=== PATIENT | female | born 1990 | race African-American/Black ===

== ENCOUNTER 2016-11-26 16:37 | Emergency (ER) | payer MEDICAID ==
[~2016-11-26 16:37] MED LIST: ALBU2.5I INH; CLON.1 PO; MACR100C PO
[2016-11-26] MEDS ORDERED: PREN29TA PO (17:29)
--- NOTE | 2016-11-26 18:04 | PD ---
HPI Chief Complaint Lower abdominal pain Date Seen: Nov 26, 2016 Travel History International Travel<30 Days: No Contact w/Intl Traveler<30Days: No Known Affected Area: No History of Present Illness HPI This patient is 26-year-old black female at 31-1/[address] Lynch presents planning of lower abdominal pain, no leakage or bleeding. Heart rate tracing is reactive, no contractions Para: 2 : 3 Last Menstrual Period: Nov 26, 2016 History Obstetric History Obstetric History 1 delivery at term and another at 35 weeks Social History Alcohol Use: No Tobacco Use: No Substance Abuse: No Allergies-Medications (Allergen,Severity, Reaction): Coded Allergies: No Known Allergies (Verified , 05/15/16) Home Meds Active Scripts Albuterol Sulfate (Resp: Albuterol 2.5 Mg/3 Ml Neb)2.5 Mg/3 Ml Nebu2.5 Mg INH Q4H PRN (SOB/WHEEZING) #1 BOX Ref 0 Prov:Fernando Foster MD 06/25/15 Reported Medications Vit-Iron Carbonyl ( Plus Iron 29-1 mg)1 Tab Tab1 Tab PO DAILY #30 TAB Ref 0 11/26/16 Discontinued Reported Medications Clonidine 0.1 mg (Catapres 0.1 mg)0.1 Mg Tab1 Tab PO DAILY 10/14/15 Discontinued Scripts Nitrofurantoin Monohyd Macro (Macrobid)100 Mg Cap1 Tab PO BID #14 CAP Prov:Aroldo Black MD 05/15/16 Review of Systems General / Constitutional: No: Fever, Weight Gain, Chills, Other Eyes: No: Diploplia, Blurred Vision, Visual changes, Pain, Photophobia HENT: No: Headaches, Vertigo, Lightheadedness Cardiovascular: No: Irregular Rhythm, Chest Pain or Discomfort, Palpitations, Tachycardia, Syncope, Varicosities, Edema, Cyanosis Respiratory: No: Cough, Short of Breath, Other Gastrointestinal: Nausea, Vomiting, Abdominal Pain, No: Diarrhea Genitourinary: No: Decreased Urinary Output, Oliguria Musculoskeletal: No: Limited ROM, Weakness, Cramping, Edema, Pain Skin: No Rash, No Itching, No Dryness, No Lumps, No Change in Pigmentation, No Change in Nails, No Alopecia, No Lesions Neurologic: No: Weakness, Dizziness, Syncope, Focal Abnormalities, Coordination Problem, Headache, Slurred Speech, Seizures Psychiatric: No: Depression, Suicidal Ideations, Homicidal Ideation Endocrine: No: Heat Intolerance, Cold Intolerance, Polydipsia, Polyuria, Other Physical Exam Narrative GENERAL: Well-nourished, well-developed patient. SKIN: Warm and dry. HEAD: Normocephalic and atraumatic. EYES: No scleral icterus. No injection or drainage. ENT: No nasal drainage noted. Mucous membranes pink. Airway patent. NECK: Supple, trachea midline. No JVD. CARDIOVASCULAR: Regular rate and rhythm without murmurs, gallops, or rubs. RESPIRATORY: Breath sounds equal bilaterally. No accessory muscle use. BREASTS: Bilateral exam showed no masses , no retractions, no nipple discharge. ABDOMEN/GI: Abdomen soft, non-tender, bowel sounds present, no rebound, no guarding Gravid to [31-] weeks size Fundal Height: [-31] GENITOURINARY: External Genitalia: intact and normal in appearance BUS glands: [-] Cervix: [-] Dilatation: [Closed-] Effacement: [-] Thick Station: [-3] Membranes: [intact ] Uterine Contractions: [-none] FHT's: Category: [1-] Baseline: [-144] Reactive: [-yes] Variability: [-mod] Decels: [none-] EXTREMITIES: No cyanosis or edema. BACK: Nontender without obvious deformity. No CVA tenderness. NEUROLOGICAL: Awake and alert. Motor and sensory grossly within normal limits. Five out of 5 muscle strength in all muscle groups. Normal speech. Data Data Orders Fentanyl Inj (Fentanyl Inj) (11/26/16 17:45) MDM Interpretation(s) The patient 26-year-old black female 31-1/2 weeks presents combining lower abdominal pain pressure some nausea and vomiting main complaint was 1 of lower abdominal pain, there was no bleeding or ruptured membranes. No contractions noted cervix is closed and thick she says she's recently treated for UTI so no urine repeated tonight Plan Plan the patient 50 micgm of fentanyl IM for pain, she is use Tylenol at home. Plenty of fluids to stay hydrated stay in bed and days heating pad on lower abdomen as needed. A work note given for 48 hours bedrest. She is to follow- up with her OB provider for increased symptoms or as scheduled Diagnosis Diagnosis: Primary Impression: related bilateral lower abdominal pain, antepartum Disposition: 01 DISCHARGE HOME Condition: Stable Patient Instructions: General Instructions, Early Labor Signs (ED), Movement (ED) Departure Forms: Tests/Procedures Kwadwo Winchester II, MD Nov 26, 2016 18:04
[2017-01-18] MEDS ORDERED: ALBU2TAB4 PO (13:25)
== END 2016-11-26 18:12 | disposition home or self-care (01) ==
LOC: HOBED 16:37
DX: O26.893 Other specified pregnancy related conditions, third trimester (principal); R10.30 Lower abdominal pain, unspecified; O21.9 Vomiting of pregnancy, unspecified; Z3A.31 31 weeks gestation of pregnancy
CPT/HCPCS: 96372; 99284; J3010

== ENCOUNTER 2016-12-28 18:32 | Emergency (ER) | payer MEDICAID ==
[~2016-12-28 18:32] MED LIST changes: -CLON.1 PO; -MACR100C PO; +PREN29TA PO
--- NOTE | 2016-12-28 20:01 | PD ---
HPI Chief Complaint Contractions Date Seen: December 28, 2016 Time Seen: 19:57 Travel History International Travel<30 Days: No Contact w/Intl Traveler<30Days: No Known Affected Area: No History of Present Illness HPI 26-year-old female at 37 weeks and 4 days comes in today complaining of 2 days contractions associated with back pain. She states that she is call her OB office several times but has not been able to get a hold of anybody. She's had good movement no vaginal discharge and denies vaginal bleeding. Last visit to the office was 2 weeks ago patient does not presently have an OB appointment set up Para: 2 : 3 History Past Medical History Narrative Medical Chronic hypertension on no medications during this Obstetric History Obstetric History Spontaneous vaginal delivery 2 Past Surgical History Surgical History: No Previous Surgery Family History Family History: Negative Social History Alcohol Use: No Tobacco Use: No Substance Abuse: No Allergies-Medications (Allergen,Severity, Reaction): Coded Allergies: No Known Allergies (Verified , 05/15/16) Home Meds Active Scripts Albuterol Sulfate (Resp: Albuterol 2.5 Mg/3 Ml Neb)2.5 Mg/3 Ml Nebu2.5 Mg INH Q4H PRN (SOB/WHEEZING) #1 BOX Ref 0 Prov:Fernando Foster MD 06/25/15 Reported Medications Vit-Iron Carbonyl ( Plus Iron 29-1 mg)1 Tab Tab1 Tab PO DAILY #30 TAB Ref 0 11/26/16 Review of Systems Except as stated in HPI: all other systems reviewed are Neg Physical Exam Narrative GENERAL: Well-nourished, well-developed patient. SKIN: Warm and dry. HEAD: Normocephalic and atraumatic. EYES: No scleral icterus. No injection or drainage. ENT: No nasal drainage noted. Mucous membranes pink. Airway patent. NECK: Supple, trachea midline. No JVD. CARDIOVASCULAR: Regular rate and rhythm without murmurs, gallops, or rubs. RESPIRATORY: Breath sounds equal bilaterally. No accessory muscle use. BREASTS: Bilateral exam showed no masses , no retractions, no nipple discharge. ABDOMEN/GI: Abdomen soft, non-tender, bowel sounds present, no rebound, no guarding Gravid to [-37] weeks size Fundal Height: [-] GENITOURINARY: External Genitalia: intact and normal in appearance BUS glands: [Normal-] Cervix: [] Dilatation: [Fingertip] Effacement: [-50] Station: [--3] Presentation: [Vertex-] Membranes: [intact or ruptured] intact Uterine Contractions: [-] Absent FHT's: Category: [1-] Baseline: [140-] Reactive: [Moderate-] Variability: [-Moderate] Decels: [Absent-] EXTREMITIES: No cyanosis or edema. BACK: Nontender without obvious deformity. No CVA tenderness. NEUROLOGICAL: Awake and alert. Motor and sensory grossly within normal limits. Five out of 5 muscle strength in all muscle groups. Normal speech. Data Data Vital Signs Reviewed: Yes MDM Plan 20 suture female who is at 37-38 weeks gestation Discomforts of is noted no signs of labor at this time Strong recommendations for an OB visit at this time as she has not yet had a group B strep test Diagnosis Diagnosis: Primary Impression: 37 weeks gestation of Additional Impressions: False labor False labor after 37 completed weeks of gestation Disposition: 01 DISCHARGE HOME Yola Sánchez MD December 28, 2016 20:00
[2017-01-18] MEDS ORDERED: ALBU2TAB4 PO (13:25)
== END 2016-12-28 20:09 | disposition home or self-care (01) ==
LOC: HOBED 18:32
DX: O47.1 False labor at or after 37 completed weeks of gestation (principal); Z3A.37 37 weeks gestation of pregnancy
CPT/HCPCS: 99283

== ENCOUNTER 2017-01-20 01:05 | Emergency (ER) | payer MEDICAID ==
[~2017-01-20 01:05] MED LIST changes: -ALBU2.5I INH; +ALBU2TAB4 PO
[2017-01-20] MEDS ORDERED: LACTATED RINGER'S 1000 ML INJ 1,000 ML IV SCH (01:39)
[2017-01-20] MEDS ORDERED: METOCLOPRAMIDE HCL 10 MG/2 ML VIAL IV PUSH ONE (01:45)
[2017-01-20] MEDS ORDERED: ONDANSETRON HCL 4 MG/2 ML VIAL IV PUSH ONE (01:45)
[2017-01-20] MEDS ORDERED: PROM25TA10 PO (01:46)
--- NOTE | 2017-01-20 01:47 | PD ---
HPI Chief Complaint Nausea and vomiting, rectal pressure Date Seen: January 20, 2017 Travel History International Travel<30 Days: No Contact w/Intl Traveler<30Days: No Known Affected Area: No History of Present Illness HPI Patient is 26-year-old black female at 39 weeks who presents complaining of nausea and vomiting all day resistant to diclegis , she's had no other medication. She complains of rectal pressure is throwing up so much. Denies contractions rupture the membranes or leakage of amniotic fluid. heart rate tracing is reactive and there are no regular contractions Para: 2 : 3 History Obstetric History Obstetric History 2 vaginal deliveries Social History Alcohol Use: No Tobacco Use: No Substance Abuse: No Allergies-Medications (Allergen,Severity, Reaction): Coded Allergies: No Known Allergies (Verified , 01/18/17) Home Meds Reported Medications Albuterol 2 Mg Tab2 Mg PO TID #90 TAB Ref 0 01/18/17 Vit-Iron Carbonyl ( Plus Iron 29-1 mg)1 Tab Tab1 Tab PO DAILY #30 TAB Ref 0 11/26/16 Review of Systems General / Constitutional: No: Fever, Weight Gain, Chills, Other Eyes: No: Diploplia, Blurred Vision, Visual changes, Pain, Photophobia HENT: No: Headaches, Vertigo, Lightheadedness Cardiovascular: No: Irregular Rhythm, Chest Pain or Discomfort, Palpitations, Tachycardia, Syncope, Varicosities, Edema, Cyanosis Respiratory: No: Cough, Short of Breath, Other Gastrointestinal: Nausea, Vomiting, No: Diarrhea Genitourinary: No: Decreased Urinary Output, Oliguria Musculoskeletal: No: Limited ROM, Weakness, Cramping, Edema, Pain Skin: No Rash, No Itching, No Dryness, No Lumps, No Change in Pigmentation, No Change in Nails, No Alopecia, No Lesions Neurologic: No: Weakness, Dizziness, Syncope, Focal Abnormalities, Coordination Problem, Headache, Slurred Speech, Seizures Psychiatric: No: Depression, Suicidal Ideations, Homicidal Ideation Endocrine: No: Heat Intolerance, Cold Intolerance, Polydipsia, Polyuria, Other Physical Exam Narrative GENERAL: Well-nourished, well-developed patient. SKIN: Warm and dry. HEAD: Normocephalic and atraumatic. EYES: No scleral icterus. No injection or drainage. ENT: No nasal drainage noted. Mucous membranes pink. Airway patent. NECK: Supple, trachea midline. No JVD. CARDIOVASCULAR: Regular rate and rhythm without murmurs, gallops, or rubs. RESPIRATORY: Breath sounds equal bilaterally. No accessory muscle use. BREASTS: Bilateral exam showed no masses , no retractions, no nipple discharge. ABDOMEN/GI: Abdomen soft, non-tender, bowel sounds present, no rebound, no guarding Gravid to [39-] weeks size Fundal Height: [39-] GENITOURINARY: External Genitalia: intact and normal in appearance BUS glands: [-] Cervix: [Closed-] Dilatation: [0-] Effacement: [Thick-] Station: [-3] Presentation: [vtx-] Membranes: [intact ] Uterine Contractions: [Occasional-] FHT's: Category: [1-] Baseline: [-133] Reactive: [-yes] Variability: [mod-] Decels: [0-] EXTREMITIES: No cyanosis or edema. BACK: Nontender without obvious deformity. No CVA tenderness. NEUROLOGICAL: Awake and alert. Motor and sensory grossly within normal limits. Five out of 5 muscle strength in all muscle groups. Normal speech. Data Data Orders Vital Signs (Adult) .ON ADMISSION (01/20/17 01:39) ^ Labor Status (01/20/17 01:39) Lactated Ringer's 1000 Ml Inj (Lr 1000 M (01/20/17 01:39) Ondansetron Inj (Zofran Inj) (01/20/17 01:45) MDM Interpretation(s) 26-year-old black female 39 weeks for nausea and vomiting throughout the day. Also now experiencing some rectal pressure. heart rate tracing is reactive and no regular contractions. No leakage of fluid no bleeding, cervix is closed very posterior thick patient here in OB ED received a liter of IV fluid IV Zofran and Reglan, and she'll have a prescription for Phenergan to take at home Plan Plan to discharge the patient with a Phenergan prescription for a 25 mg tablets orally take every 6 when necessary, she should use a bland diet increase her oral fluids for hydration purposes, and follow-up with [facility] provider [facility] Diagnosis Diagnosis: Primary Impression: Nausea and vomiting of , antepartum Disposition: 01 DISCHARGE HOME Condition: Stable Scripts Promethazine (Phenergan)25 Mg [id number] Mg PO Q6H PRN (NAUSEA OR VOMITING) #30 TAB Ref 0 Prov:Kwadwo Winchester II, MD 01/20/17 Kwadwo Winchester II, MD January 20, 2017 01:46
[2017-01-20] MEDS ORDERED: AZIT250T3 PO (11:37)
== END 2017-01-20 03:19 | disposition home or self-care (01) ==
LOC: HOBED 01:05
DX: O21.0 Mild hyperemesis gravidarum (principal)
CPT/HCPCS: 96374; 96375; J2405; J2765; J7120

== ENCOUNTER 2017-01-21 11:53 | Inpatient (IN) | payer MEDICAID ==
[2017-01-21] VITALS (36 sets, daily range): BP systolic 108–139; BP diastolic 59–92; PULSE 69–159; RESP 18; TEMP 97.6–98.6; O2SAT 100
[~2017-01-21] VITALS: Ht 170.2 cm; Wt 94.3 kg
[~2017-01-21 11:53] MED LIST changes: +AZIT250T3 PO; +PROM25TA10 PO
[2017-01-21] MEDS ORDERED: LACTATED RINGER'S 1000 ML INJ 1,000 ML IV PRN (12:14)
[2017-01-21] MEDS ORDERED: LACTATED RINGER'S 1000 ML INJ 1,000 ML IV SCH (12:14)
[2017-01-21] MEDS ORDERED: SODIUM CHLORID 0.9% 500 ML INJ 500 ML IV PRN (12:15)
[2017-01-21] MEDS ORDERED: LIDOCAINE HCL 1% 50 ML VIAL I-DERMAL PRN (12:15)
[2017-01-21] MEDS ORDERED: OXYTOCIN 30 UNITS-500ML PREMIX 500 ML IV ONE (12:15)
[2017-01-21] MEDS ORDERED: MINERAL OIL 10 ML VIAL TOPICAL PRN (12:15)
[2017-01-21] MEDS ORDERED: CITRIC ACID-SODIUM CITRATE LIQ 30 ML UDC PO SCH (12:15)
[2017-01-21] MEDS ORDERED: LIDOCAINE HCL 1% 50 ML VIAL INFIL PRN (12:15)
[2017-01-21] MEDS ORDERED: PENICILLIN G POTASSIUM INJ 5,000,000 UNITS in SODIUM CHLORIDE 0.9% INJ 100 ML IV ONE (12:30)
[2017-01-21] MEDS ORDERED: AZITHROMYCIN 600 MG TAB PO ONE (12:30)
[2017-01-21] MEDS ORDERED: SODIUM CHLOR 0.9% 1000 ML INJ 1,000 ML IV PRN (12:34)
--- NOTE | 2017-01-21 12:49 | PD ---
HPI Chief Complaint Contractions, leaking fluid Date Seen: January 21, 2017 (Steven Vega MD R2) Travel History International Travel<30 Days: No Contact w/Intl Traveler<30Days: No (Steven Vega MD) History of Present Illness HPI 26 year old at 39/4 weeks gestation presents to the OB ED with leaking fluid this morning and with contractions that are 25 minutes apart. She has good movements, no vaginal bleeding. No headache, blurry vision, epigastric pain, or new onset of edema. No nausea, vomiting. Reports no complications in this . She is GBS positive. She has asthma and uses Albuterol once or twice a day. (Steven Vega MD) History Past Medical History Narrative Medical Asthma: uses albuterol once or twice daily (Steven Vega MD R2) Obstetric History Obstetric History Vaginal deliveries 1st: delivered at 35 weeks 2nd delivered 38 weeks GBS positive Chlamydia positive No reported complications in Was patient of Dr. Barraza, switched to Dr. Jordan recently BMI >32.6 labs: Blood type: A Rh: positive Antibody screen: negative Rubella: immune VDRL negative HBsAG negative HIV negative Chlamydia negative Gonorrhea positive with negative KINJAL 07/18/16 TSH normal Chlamydia test 3rd trimester positive Gonorrhea third trimester negative (Steven Vega MD R2) Past Surgical History Narrative Surgical None (Steven Vega MD) Family History Narrative Family History None (Steven Vega MD) Social History Narrative Social History No smoking, drinking, or drug use reported (Steven Vega MD R2) Allergies-Medications (Allergen,Severity, Reaction): Coded Allergies: No Known Allergies (Verified , 01/18/17) Home Meds Active Scripts Azithromycin 250 Mg Tab1,000 Mg PO DAILY #4 TAB Ref 1 Prov:Henrietta Bautista CNM 01/20/17 Promethazine (Phenergan)25 Mg [id number] Mg PO Q6H PRN (NAUSEA OR VOMITING) #30 TAB Ref 0 Prov:Kwadwo Winchester II, MD 01/20/17 Reported Medications Albuterol 2 Mg Tab2 Mg PO TID #90 TAB Ref 0 01/18/17 Vit-Iron Carbonyl ( Plus Iron 29-1 mg)1 Tab Tab1 Tab PO DAILY #30 TAB Ref 0 11/26/16 Review of Systems Except as stated in HPI: all other systems reviewed are Neg (Steven Vega MD R2) Physical Exam Narrative GENERAL: Well-nourished, well-developed patient. SKIN: Warm and dry. HEAD: Normocephalic and atraumatic. EYES: No scleral icterus. No injection or drainage. ENT: No nasal drainage noted. Mucous membranes pink. Airway patent. NECK: Supple, trachea midline. No JVD. CARDIOVASCULAR: Regular rate and rhythm without murmurs, gallops, or rubs. RESPIRATORY: Breath sounds equal bilaterally. No accessory muscle use. ABDOMEN/GI: Abdomen soft, non-tender, bowel sounds present, no rebound, no guarding Gravid to 39 weeks size GENITOURINARY: External Genitalia: intact and normal in appearance Dilatation: 4 cm Effacement: 80% Station: -1 Presentation: vertex Membranes: intact Uterine Contractions: irritable uterus FHT's: Category: 1 Baseline: 130's Reactive: yes Variability: moderate Decels: none EXTREMITIES: No cyanosis or edema. BACK: Nontender without obvious deformity. No CVA tenderness. NEUROLOGICAL: Awake and alert. Motor and sensory grossly within normal limits. Five out of 5 muscle strength in all muscle groups. Normal speech. (Steven Vega MD R2) Data Data Vital Signs Reviewed: Yes Orders Admit To Inpatient (01/21/17 ) Code Status (01/21/17 12:14) Vital Signs (Adult) .Per protocol (01/21/17 12:14) Heart (01/21/17 12:14) Amnioinfusion (01/21/17 12:14) Urinary Catheter Management .ONCE (01/21/17 12:14) Lactated Ringer's 1000 Ml Inj (Lr 1000 M (01/21/17 12:14) Lactated Ringer's 1000 Ml Inj (Lr 1000 M (01/21/17 12:14) Sodium Chlorid 0.9% 500 Ml Inj (Ns 500 M (01/21/17 12:15) Sodium Chlor 0.9% 1000 Ml Inj (Ns 1000 M (01/21/17 12:34) Lidocaine 1% Inj (50 Ml) (Xylocaine 1% I (01/21/17 12:15) Citric Acid-Sodium Citrate Liq (Bicitra (01/21/17 12:15) Fentanyl Inj (Fentanyl Inj) (01/21/17 12:15) Fentanyl Inj (Fentanyl Inj) (01/21/17 12:15) Complete Blood Count With Diff (01/21/17 12:14) Hold Clot (01/21/17 12:14) Abo/Rh Blood Type (01/21/17 12:14) Resp Oxygen Non Rebreathe Mask (01/21/17 ) ^ Epidural / Intrathecal Infus (01/21/17 12:14) Oxytocin 30 Units-500ml Premix (Pitocin (01/21/17 12:15) Lidocaine 1% Inj (50 Ml) (Xylocaine 1% I (01/21/17 12:15) Light Mineral Oil (Muri-Lube Oil) (01/21/17 12:15) Inpatient Certification (01/21/17 ) Ob (2e) Additional Admit Info (01/21/17 12:16) Penicillin G Potassium Inj (Pfizerpen-G (01/21/17 12:30) Penicillin G Potassium Inj (Pfizerpen-G (01/21/17 16:30) Azithromycin (Zithromax) (01/21/17 12:30) (Steven Vega MD R2) MDM Medical Record Reviewed: Yes Interpretation(s) 26 year old at 39/4 weeks gestation, cervical exam 4/80/-1, category 1 strip. Amnisure negative. - Admit to labor and delivery, anticipate vaginal delivery - Epidural for pain control when needed - GBS positive, penicillin G started - Chlamydia: Azithromycin given - heart monitoring Discussed with Dr. El (Steven Vega MD R2) Attending Attestation Patient seen and evaluated with resident under direct supervision, agree with assessment and plan. (Shadi El MD) Steven Vega MD R2 January 21, 2017 12:48 Shadi El MD January 21, 2017 16:17
--- NOTE | 2017-01-21 13:00 | HHI.HP ---
History & Physical H&P Patient Name: Caio Mayer Unit Number: [id number] Date of : 1990 Patient Status: Admitted Inpatient Attending Doctor: Shadi El MD HPI HPI Chief Complaint Contractions, leaking fluid Date Seen: January 21, 2017 Travel History International Travel<30 Days: No Contact w/Intl Traveler<30Days: No History of Present Illness HPI 26 year old at 39/4 weeks gestation presents to the OB ED with leaking fluid this morning and with contractions that are 25 minutes apart. She has good movements, no vaginal bleeding. No headache, blurry vision, epigastric pain, or new onset of edema. No nausea, vomiting. Reports no complications in this . She is GBS positive. She has asthma and uses Albuterol once or twice a day. History (Limited) History Past Medical History Narrative Medical Asthma: uses albuterol once or twice daily Obstetric History Obstetric History Vaginal deliveries 1st: delivered at 35 weeks 2nd delivered 38 weeks GBS positive Chlamydia positive No reported complications in Was patient of Dr. Barraza, switched to Dr. Jordan recently BMI >32.6 labs: Blood type: A Rh: positive Antibody screen: negative Rubella: immune VDRL negative HBsAG negative HIV negative Chlamydia negative Gonorrhea positive with negative KINJAL 07/18/16 TSH normal Chlamydia test 3rd trimester positive Gonorrhea third trimester negative Past Surgical History Narrative Surgical None Family History Narrative Family History None Social History Narrative Social History No smoking, drinking, or drug use reported Allergies-Medications Allergies-Medications (Allergen,Severity, Reaction): Coded Allergies: No Known Allergies (Verified , 01/18/17) Home Meds Active Scripts Azithromycin 250 Mg Tab1,000 Mg PO DAILY #4 TAB Ref 1 Prov:Henrietta Bautista CNM [employer] 01/20/17 Promethazine (Phenergan)25 Mg [id number] Mg PO Q6H PRN (NAUSEA OR VOMITING) #30 TAB Ref 0 Prov:Kwadwo Winchester II, MD 01/20/17 Reported Medications Albuterol 2 Mg Tab2 Mg PO TID #90 TAB Ref 0 01/18/17 Vit-Iron Carbonyl ( Plus Iron 29-1 mg)1 Tab Tab1 Tab PO DAILY #30 TAB Ref 0 11/26/16 ROS Review of Systems Except as stated in HPI: all other systems reviewed are Neg Physical Exam Physical Exam Narrative GENERAL: Well-nourished, well-developed patient. SKIN: Warm and dry. HEAD: Normocephalic and atraumatic. EYES: No scleral icterus. No injection or drainage. ENT: No nasal drainage noted. Mucous membranes pink. Airway patent. NECK: Supple, trachea midline. No JVD. CARDIOVASCULAR: Regular rate and rhythm without murmurs, gallops, or rubs. RESPIRATORY: Breath sounds equal bilaterally. No accessory muscle use. ABDOMEN/GI: Abdomen soft, non-tender, bowel sounds present, no rebound, no guarding Gravid to 39 weeks size GENITOURINARY: External Genitalia: intact and normal in appearance Dilatation: 4 cm Effacement: 80% Station: -1 Presentation: vertex Membranes: intact Uterine Contractions: irritable uterus FHT's: Category: 1 Baseline: 130's Reactive: yes Variability: moderate Decels: none EXTREMITIES: No cyanosis or edema. BACK: Nontender without obvious deformity. No CVA tenderness. NEUROLOGICAL: Awake and alert. Motor and sensory grossly within normal limits. Five out of 5 muscle strength in all muscle groups. Normal speech. Data Data Data Vital Signs Reviewed: Yes Orders Admit To Inpatient (01/21/17 ) Code Status (01/21/17 12:14) Vital Signs (Adult) .Per protocol (01/21/17 12:14) Heart (01/21/17 12:14) Amnioinfusion (01/21/17 12:14) Urinary Catheter Management .ONCE (01/21/17 12:14) Lactated Ringer's 1000 Ml Inj (Lr 1000 M (01/21/17 12:14) Lactated Ringer's 1000 Ml Inj (Lr 1000 M (01/21/17 12:14) Sodium Chlorid 0.9% 500 Ml Inj (Ns 500 M (01/21/17 12:15) Sodium Chlor 0.9% 1000 Ml Inj (Ns 1000 M (01/21/17 12:34) Lidocaine 1% Inj (50 Ml) (Xylocaine 1% I (01/21/17 12:15) Citric Acid-Sodium Citrate Liq (Bicitra (01/21/17 12:15) Fentanyl Inj (Fentanyl Inj) (01/21/17 12:15) Fentanyl Inj (Fentanyl Inj) (01/21/17 12:15) Complete Blood Count With Diff (01/21/17 12:14) Hold Clot (01/21/17 12:14) Abo/Rh Blood Type (01/21/17 12:14) Resp Oxygen Non Rebreathe Mask (01/21/17 ) ^ Epidural / Intrathecal Infus (01/21/17 12:14) Oxytocin 30 Units-500ml Premix (Pitocin (01/21/17 12:15) Lidocaine 1% Inj (50 Ml) (Xylocaine 1% I (01/21/17 12:15) Light Mineral Oil (Muri-Lube Oil) (01/21/17 12:15) Inpatient Certification (01/21/17 ) Ob (2e) Additional Admit Info (01/21/17 12:16) Penicillin G Potassium Inj (Pfizerpen-G (01/21/17 12:30) Penicillin G Potassium Inj (Pfizerpen-G (01/21/17 16:30) Azithromycin (Zithromax) (01/21/17 12:30) MDM MDM Medical Record Reviewed: Yes Interpretation(s) 26 year old at 39/4 weeks gestation, cervical exam 4/80/-1, category 1 strip. Amnisure negative. - Admit to labor and delivery, anticipate vaginal delivery - Epidural for pain control when needed - GBS positive, penicillin G started - Chlamydia: Azithromycin given - heart monitoring Discussed with Dr. El (Steven Vega MD R2) H&P Patient seen and evaluated with resident under direct supervision, agree with assessment and plan. (Shadi El MD) Steven Vega MD R2 January 21, 2017 13:00 Shadi El MD January 21, 2017 16:17
[2017-01-21 13:18] LABS: AUTOMATED NEUTROPHIL # 5.9 TH/MM3 (1.8-7.7); BASOPHIL % 0.4 % (0.0-2.0); EOSINOPHIL # 0.1 TH/MM3 (0-0.4); EOSINOPHIL % 1.3 % (0.0-4.0); HEMATOCRIT 37.9 % (35.0-46.0); HEMO FLAGS DIFF FINAL; LYMPH % 20.7 % (9.0-44.0); LYMPHOCYTE # 1.7 TH/MM3 (1.0-4.8); MEAN CELL VOLUME 81.8 FL (80.0-100.0); MEAN CORPUSCULAR HEMOGLOBIN 27.5 PG (27.0-34.0); MEAN CORPUSCULAR HGB CONC 33.7 % (32.0-36.0); MONO % 5.2 % (0.0-8.0); NEUT % 72.4 % (16.0-70.0); PLATELET COUNT 224 TH/MM3 (150-450); RED BLOOD COUNT 4.64 MIL/MM3 (4.00-5.30); RED CELL DISTRIBUTION WIDTH 14.3 % (11.6-17.2); WHITE BLOOD COUNT 8.1 TH/MM3 (4.0-11.0)
[2017-01-21] MEDS ORDERED: MEASLES, MUMPS, RUBELLA VACCINE 0.5 ML VIAL SQ ONE (16:00)
[2017-01-21] MEDS ORDERED: DIPHTH/TETANUS/ACEL PERTUSSIS (BOOSTER) 0.5 ML VIAL/PFS IM ONE (16:00)
[2017-01-21] MEDS ORDERED: ALBUTEROL SULFATE 90 MCG/ACT HFA 18 GM INHALER INH PRN (16:15)
--- NOTE | 2017-01-21 16:27 | PD.LABORPN ---
Subjective Subjective The patient notes increased contraction intensity. Objective Vital Signs Vital Signs Date Time Temp Pulse Resp B/P Pulse Ox O2 Delivery O2 Flow Rate FiO2 01/21/17 16:05 18 01/21/17 16:03 70 126/82 01/21/17 15:26 84 117/71 01/21/17 15:25 83 01/21/17 15:25 18 01/21/17 15:20 78 01/21/17 15:15 90 01/21/17 15:10 82 01/21/17 15:05 84 01/21/17 15:00 83 01/21/17 14:55 75 01/21/17 14:50 76 01/21/17 14:25 98.6 18 01/21/17 14:24 69 124/69 01/21/17 13:25 80 01/21/17 13:20 90 01/21/17 13:15 84 01/21/17 12:10 88 01/21/17 12:07 96 120/59 01/21/17 12:05 97 Objective Pelvic Exam: Cervix: [-] Dilatation: [6-] Effacement: [100-] Station: [--1] Presentation: [-] Membranes: [intact] Uterine Contractions: [3-] FHT's: Category: [-1] Baseline: [-] Reactive: [-] Variability: [-] Decels: [-] Assessment/Plan Assessment and Plan Assessment: Progressing in active labor Plan: Continue GBS prophylaxis Expect vaginal delivery Shadi El MD January 21, 2017 16:26
[2017-01-21] MEDS ORDERED: PENICILLIN G POTASSIUM INJ 2,500,000 UNITS in SODIUM CHLORIDE 0.9% INJ 100 ML IV SCH (16:30)
--- NOTE | 2017-01-21 18:12 | PD.OB.DELI ---
Delivery Date: January 21, 2017 Anesthesia: None Episiotomy: None Vaginal Delivery: Normal Presentation: Occiput anterior Nuchal Cord: None Delayed cord clamping (45 sec): Yes Infant: Female One Minute : 8 Five Minute : 9 Weight: 2740 g Placenta: Spontaneous delivery Laceration: No lacerations Additional Information Delivered by Dr. Pop Supervised by Dr. El Notes: Quick expulsion of head, no dystocia, no lacerations (lEiseo Pop MD R1) Attestation I attended this delivery. The patient was seen and evaluated with resident under direct supervision, agree with assessment and plan. (Shadi El MD ) Eliseo Pop MD R1 January 21, 2017 18:12 Shadi El MD January 21, 2017 18:20
[2017-01-21] MEDS ORDERED: ZOLPIDEM TARTRATE 5 MG TAB PO PRN (18:15)
[2017-01-21] MEDS ORDERED: SODIUM CHLORIDE 0.9% FLUSH 10 ML FLUSH IV FLUSH PRN (18:15)
[2017-01-21] MEDS ORDERED: ALUMINUM/MAGNESIUM/SIMETH 30 ML CUP PO PRN (18:15)
[2017-01-21] MEDS ORDERED: BENZOCAINE 20% TOPICAL SPRAY 60 ML CAN TOPICAL PRN (18:15)
[2017-01-21] MEDS ORDERED: WITCH HAZEL 50%/GLYCERIN 12.5% 40 PAD JAR TOPICAL PRN (18:15)
[2017-01-21] MEDS ORDERED: ONDANSETRON ODT 4 MG TAB PO PRN (18:15)
[2017-01-21] MEDS: IBUPROFEN 600 MG TAB PO PRN (18:27)
[2017-01-21] MEDS ORDERED: SODIUM CHLORIDE 0.9% FLUSH 10 ML FLUSH IV FLUSH SCH (21:00)
[2017-01-21] MEDS: ACETAMINOPHEN 325 MG TAB PO PRN (21:44)
[2017-01-22] MEDS: ACETAMINOPHEN 325 MG TAB PO PRN ×5 (01:45→23:32)
[2017-01-22] MEDS: IBUPROFEN 600 MG TAB PO PRN ×4 (01:46→19:59)
--- NOTE | 2017-01-22 07:12 | HHI.OB ---
Subjective Post Day: 1 Remarks 26 year old PPD 1. No complaints this morning. Pain well controlled. She is and began formula supplementation overnight. Lochia is light. Unknown control plans. (Lata Connolly MD R1) Remarks Patient seen and evaluated with resident under direct supervision, agree with assessment and plan. (Shadi El MD) Objective Vitals/I&O Vital Signs Date Time Temp Pulse Resp B/P Pulse Ox O2 Delivery O2 Flow Rate FiO2 01/21/17 18:50 18 01/21/17 18:45 80 125/84 01/21/17 18:33 108/81 01/21/17 18:29 97.6 159 18 126/78 01/21/17 18:14 18 01/21/17 17:53 100 123/82 01/21/17 17:15 97 01/21/17 17:15 100 01/21/17 17:10 100 01/21/17 17:10 105 01/21/17 17:05 100 01/21/17 17:05 98 01/21/17 17:04 18 01/21/17 17:03 105 139/92 01/21/17 16:05 18 01/21/17 16:03 70 126/82 01/21/17 15:55 99 100 01/21/17 15:50 88 100 01/21/17 15:45 92 100 01/21/17 15:40 86 100 01/21/17 15:35 83 100 01/21/17 15:30 82 100 01/21/17 15:26 84 117/71 01/21/17 15:25 83 01/21/17 15:25 100 01/21/17 15:25 18 01/21/17 15:20 100 01/21/17 15:20 78 01/21/17 15:15 90 01/21/17 15:15 100 01/21/17 15:10 82 01/21/17 15:10 100 01/21/17 15:05 84 01/21/17 15:05 100 01/21/17 15:00 100 01/21/17 15:00 83 01/21/17 14:55 100 01/21/17 14:55 75 01/21/17 14:50 76 01/21/17 14:50 100 01/21/17 14:25 98.6 18 01/21/17 14:24 69 124/69 01/21/17 13:25 80 01/21/17 13:20 90 01/21/17 13:15 84 01/21/17 12:10 88 01/21/17 12:07 96 120/59 01/21/17 12:05 97 Objective Remarks GENERAL: Well-nourished, well-developed female. CARDIOVASCULAR: Regular rate and rhythm without murmurs, gallops, or rubs. RESPIRATORY: Breath sounds equal bilaterally. No accessory muscle use. ABDOMEN/GI: Abdomen soft, non-tender. Fundus: Firm, non-tender at umbilicus. GENITOURINARY: Light to moderate bleeding. EXTREMITIES: No cyanosis or edema, non-tender, without signs of DVT. Medications and IVs Current Medications Medications (Trade) Dose Ordered Sig/Emmanuel Route Start Time Stop Time Status Last Admin (Ventolin Hfa Inh) 2 puff Q6H PRN INH 01/21/17 16:15 (NS Flush) 2 ml BID IV FLUSH 01/21/17 21:00 (NS Flush) 2 ml UNSCH PRN IV FLUSH 01/21/17 18:15 (Tylenol) 650 mg Q4H PRN PO 01/21/17 18:15 01/22/17 01:45 (Motrin) 600 mg Q6H PRN PO 01/21/17 18:15 01/22/17 01:46 (Americaine 20% Top Spr) 1 spray Q4H PRN TOPICAL 01/21/17 18:15 01/22/17 01:53 (Tucks Pads) 1 applic QID PRN TOPICAL 01/21/17 18:15 01/22/17 01:53 (Demetrice-Colace) 2 tab Q12H PRN PO 01/21/17 18:15 (Ambien) 5 mg HS PRN PO 01/21/17 18:15 (Mag-Al Plus Susp Liq) 15 ml Q8H PRN PO 01/21/17 18:15 (Zofran Odt) 4 mg Q6H PRN PO 01/21/17 18:15 (Lata Connolly MD R1) Assessment/Plan Problem List: (1) Normal vaginal delivery of third Assessment and Plan 26 y/o female who is PPD# 1 s/p . + Chlamydia 3rd trimester, treated with azithromycin. -Continue routine care. -Percocet and] Motrin PRN pain. -Encouraged OOB. Advised pelvic rest for 6 wks. - control plan: undecided -Anticipate discharge tomorrow. DW Dr. El (Lata Connolly MD R1) Lata Connolly MD R1 January 22, 2017 07:11 Shadi El MD January 22, 2017 09:41
[2017-01-22 08:10] VITALS: BP 105/68; PULSE 67; RESP 16; TEMP 97.5
[2017-01-22] MEDS: DOCUSATE SODIUM 50 MG/SENNA 8.6 MG TAB PO PRN ×2 (08:20→19:59)
[2017-01-23] MEDS: IBUPROFEN 600 MG TAB PO PRN ×3 (02:07→15:06)
[2017-01-23 08:15] VITALS: BP 131/88; PULSE 80; RESP 16; TEMP 98.2
[2017-01-23] MEDS: ACETAMINOPHEN 325 MG TAB PO PRN ×2 (08:16→12:35)
--- NOTE | 2017-01-23 09:19 | HHI.OB ---
Subjective Post Day: 2 Remarks Patient is a 26-year-old delivered at 39 weeks and 4 days. Patient is day 2 after . Patient's pain is well-controlled. Patient reports eating and drinking without any nausea or vomiting. Patient reports minimal bleeding. Patient has passed gas and a little bowel movement. Patient is walking without lower extremity pain or shortness of breath. Patient reports desire for contraception and bottle-feeding. Objective Vitals/I&O Vital Signs Date Time Temp Pulse Resp B/P Pulse Ox O2 Delivery O2 Flow Rate FiO2 01/23/17 08:15 98.2 80 16 131/88 Objective Remarks GENERAL: Well-nourished, well-developed female. CARDIOVASCULAR: Regular rate and rhythm without murmurs, gallops, or rubs. RESPIRATORY: Breath sounds equal bilaterally. No accessory muscle use. ABDOMEN/GI: Abdomen soft, non-tender. Fundus: Firm, non-tender at umbilicus. GENITOURINARY: Light to moderate bleeding. EXTREMITIES: No cyanosis or edema, non-tender, without signs of DVT. Medications and IVs Current Medications Medications (Trade) Dose Ordered Sig/Emmanuel Route Start Time Stop Time Status Last Admin (Ventolin Hfa Inh) 2 puff Q6H PRN INH 01/21/17 16:15 (NS Flush) 2 ml BID IV FLUSH 01/21/17 21:00 (NS Flush) 2 ml UNSCH PRN IV FLUSH 01/21/17 18:15 (Tylenol) 650 mg Q4H PRN PO 01/21/17 18:15 01/23/17 08:16 (Motrin) 600 mg Q6H PRN PO 01/21/17 18:15 01/23/17 08:16 (Americaine 20% Top Spr) 1 spray Q4H PRN TOPICAL 01/21/17 18:15 01/22/17 01:53 (Tucks Pads) 1 applic QID PRN TOPICAL 01/21/17 18:15 01/22/17 01:53 (Demetrice-Colace) 2 tab Q12H PRN PO 01/21/17 18:15 01/22/17 19:59 (Ambien) 5 mg HS PRN PO 01/21/17 18:15 (Mag-Al Plus Susp Liq) 15 ml Q8H PRN PO 01/21/17 18:15 (Zofran Odt) 4 mg Q6H PRN PO 01/21/17 18:15 Assessment/Plan Problem List: (1) Normal vaginal delivery of third Assessment and Plan 26 y/o female who is PPD# 2 s/p at 39 weeks and 4 days. + Chlamydia 3rd trimester, treated with azithromycin. -AF VSS -Continue routine care. -Percocet and Motrin PRN pain. -Encouraged OOB. Advised pelvic rest for 6 wks. Will need follow-up appointment at that time. - control plan: Depo shot today prior to discharge -Anticipate discharge today. DW Dr. Sánchez Discharge Planning today at 5pm Steven Sweet MD R1 January 23, 2017 09:19
[2017-01-23] MEDS ORDERED: ACET1TAB86 PO (09:22)
[2017-01-23] MEDS ORDERED: IBUP-232 PO (09:22)
--- NOTE | 2017-01-23 09:23 | HHI.DCPOC ---
Discharge Care Plan Diagnosis: (1) Normal vaginal delivery of third Report Symptoms to Your Doctor -Temperature above 100.5 degrees -Redness, of incision or excessive or foul smelling drainage -Unusual pain or calf pain -Increased vaginal bleeding -Painful or difficulty urinating -Feelings of extreme sadness or anxiety after 2 weeks Goals to Promote Your Health * To prevent worsening of your condition and complications, please follow-up with her doctor within 6 weeks. * To maintain your health at the optimal level, please stay well hydrated, eat a well-balanced diet, and exercise regularly. Directions to Meet Your Goals Take your medications as prescribed Follow your dietary instruction Follow activity as directed Ensure plenty of rest for recovery Drink fluids for hydration Keep your appointments as scheduled Take your immunizations and boosters as scheduled If your symptoms worsen call your PCP, if no PCP go to Urgent Care Center or Emergency Room Smoking is Dangerous to Your Health. Avoid second hand smoke Call the 24-hour crisis hotline for domestic abuse at Steven Sweet MD R1 January 23, 2017 09:23
[2017-01-23] MEDS ORDERED: medroxyPROGESTERone ACETATE SUSP 150 MG/ML SYRINGE IM ONE (10:00)
== END 2017-01-23 17:04 | disposition home or self-care (01) | DRG 774 ==
LOC: HOBED 11:53 → H2EB 12:17 → H1EA 19:56
PROVIDERS: ADMIT Obstetrics & Gynecology; ATTEND Obstetrics & Gynecology
PROC: 10E0XZZ Delivery of Products of Conception, External Approach (ICD-10-PCS; principal; 2017-01-21)
DX: O99.824 Streptococcus B carrier state complicating childbirth (principal); O98.82 Other maternal infectious and parasitic diseases complicating childbirth; Z37.0 Single live birth; Z3A.39 39 weeks gestation of pregnancy; O99.52 Diseases of the respiratory system complicating childbirth; J45.909 Unspecified asthma, uncomplicated
CPT/HCPCS: 84112; 85025; 96374; 96375; 99285; J1050; J2405; J2540; J2765; J3010; J7120